=== PATIENT | male | born 1970 | race Caucasian/White ===

== ENCOUNTER 2017-02-19 12:09 | Emergency (ER) | payer MEDICAID ==
[~2017-02-19] VITALS: Ht 170.2 cm; Wt 77.1 kg
[2017-02-19 12:10] VITALS: BP_SYST 140
--- NOTE | 2017-02-19 12:10 | NUR ---
Arrived via [facility] for shaking and hypoglycemia. Pt has abrasions to bilat tongue no active bleeding. Patient is AAO x 4. Placed in room 8. Placed on front desk monitor, blood pressure machine and pulse oximeter. To gown for exam. Side rails up. Report given to Nirmal CARRENO.
--- NOTE | 2017-02-19 12:20 | NUR ---
ER at bedside examining patient.
--- NOTE | 2017-02-19 12:25 | NUR ---
Pt presents to ER after having seizure-like activity. states that pt was on the bed when he began to shake uncontrollably for what she describesd as a few minutes. Pt reportedly bit his tongue during seizure causing minor bleeding. Pt denies N/V/D/ABD PAIN/CP/ SOB. Pt reports medical history of DM; pt reports this as first seizure activity. Pt denies taking his medication this morning. Pt in no acute distress at the moment; AOX4; NKDA; at bedside. Pt presents with 22G on RAC which was placed by paramedics en route to [facility].
[2017-02-19] MEDS ORDERED: NACL 0.9% 1,000 ML IV ONE ×2 (12:34→12:45)
[2017-02-19] MEDS ORDERED: ASPIRIN 81 MG TAB.CHEW PO ONE (12:45)
--- NOTE | 2017-02-19 13:14 | NUR ---
Pt medicated and tolerating well; will continue to monitor.
[2017-02-19 13:16] LABS: BASOPHILS % (AUTO) 0.3 % (0.0-2.0); EOSINOPHILS % (AUTO) 0.4 % (0.0-4.0); HEMATOCRIT 46.2 % (36-54); HEMOGLOBIN 15.1 g/dL (14.0-18.0); LYMPHOCYTES # (AUTO) 1.1 K/uL (1.0-5.5); LYMPHOCYTES % (AUTO) 9.1 % (20.5-51.5); MEAN CORPUSCULAR HEMOGLOBIN 30 pg (27-31); MEAN CORPUSCULAR HGB CONC 33 % (32-36); MEAN CORPUSCULAR VOLUME 92 fL (79.0-98.0); MONOCYTES # (AUTO) 0.8 K/uL (0.0-1.0); MONOCYTES % (AUTO) 6.4 % (1.7-9.3); NEUTROPHILS # (AUTO) 9.8 K/uL (1.8-7.7); NEUTROPHILS % (AUTO) 83.8 % (40.0-70.0); PLATELET COUNT (AUTO) 195 K/uL (130-430); RED BLOOD CELL COUNT(AUTO) 5.01 MIL/uL (4.2-6.2); RED CELL DISTRIBUTION WIDTH 12.7 % (9.0-15.0); WHITE BLOOD COUNT (AUTO) 11.7 K/uL (4.8-10.8)
[2017-02-19 13:40] LABS: ANION GAP 9 (5-15); CALCIUM 9.5 mg/dL (8.4-11.0); CHLORIDE 101 mmol/L (98-107); CREATININE 0.86 mg/dL (0.55-1.30); GLUCOSE 124 mg/dL (70-99); POTASSIUM 4.5 mmol/L (3.5-5.1); SODIUM SERUM 135 mmol/L (136-145); UREA NITROGEN, BLOOD 14 mg/dL (8-21)
[2017-02-19 13:48] LABS: PROTHROMBIN TIME 9.8 SECS (9.5-12.5)
[2017-02-19 13:49] LABS: ALANINE AMINOTRANSFERASE 49 U/L (12-78); ASPARTATE AMINOTRANSFERASE 53 U/L (10-37); TOTAL BILIRUBIN 0.3 mg/dL (0.0-1.0)
[2017-02-19 13:50] LABS: GFR AFRICAN AMERICAN 123 mL/min (>90)
[2017-02-19 14:00] LABS: ALBUMIN 3.6 g/dL (3.4-4.8)
--- NOTE | 2017-02-19 14:30 | NUR ---
Dr. Grossman at bedside updating pt and family on lab and diagnostic results.
[2017-02-19 15:10] VITALS: BP_SYST 138
--- NOTE | 2017-02-19 15:10 | NUR ---
Patient given written and verbal discharge instructions and verbalizes understanding. ER MD discussed with patient the results and treatment provided. Patient in stable condition. ID arm band removed. IV catheter removed intact and dressing applied, no active bleeding. No Rx given. Patient educated on pain management and to follow up with PMD. Pain Scale 2/10 on mouth. Opportunity for questions provided and answered.
== END 2017-02-19 15:10 | disposition home or self-care (01) ==
LOC: SED 12:09
DX: E11.649 Type 2 diabetes mellitus with hypoglycemia without coma (principal); G40.89 Other seizures
CPT/HCPCS: 36415; 71045; 80053; 82962; 84484; 85025; 85610; 85730; 93005; 96360; 96361; 99285; J7030